=== PATIENT | female | born 1965 | race Caucasian/White ===

== ENCOUNTER 2022-10-23 11:19 | Outpatient (CLI) | payer OTHER, SELFPAY ==
[2022-10-23 17:07] LABS: Cholesterol* 176 mg/dL (90-199); HDL Cholesterol* 48 mg/dL (>=50); LDL Cholesterol Calculated 108 mg/dL (<100); Triglycerides* 99 mg/dL (40-149)
[2022-10-23 17:36] LABS: TSH With Reflex to FT4* 0.768 uIU/mL (0.270-4.200)
== END 2022-10-23 11:20 | disposition home or self-care (01) ==
PROVIDERS: PCP Family Medicine; Visit Provider Family Medicine
DX: E03.9 Hypothyroidism, unspecified (principal); E78.5 Hyperlipidemia, unspecified
CPT/HCPCS: 80061; 84443

== ENCOUNTER 2023-11-05 09:40 | Outpatient (CLI) | payer OTHER, SELFPAY | END 2023-11-05 09:41 | disposition home or self-care (01) | PROVIDERS: PCP Family Medicine; Visit Provider Family Medicine | DX: E78.2 Mixed hyperlipidemia (principal); E13.9 Other specified diabetes mellitus without complications; Z13.29 Encounter for screening for other suspected endocrine disorder | CPT/HCPCS: 80048; 80061; 84439 ==

== ENCOUNTER 2024-01-28 12:43 | Outpatient (CLI) | payer OTHER, SELFPAY ==
--- NOTE | 2024-01-28 13:00 | MM_ITS ---
Patient: PONCHO RESTREPO Facility:?[facility] Patient ID:?[id number] Site Patient ID:?[id number]. Site :?[id number] Study:?XRay-Breast Bilateral 3D W/CAD-01/28/2024 1:57:11 PM Ordering Physician:?Nishant Cole Final Report: BILATERAL SCREENING MAMMOGRAM WITH COMPUTER-AIDED DETECTION AND TOMOSYNTHESIS TECHNIQUE: CC and MLO views were obtained. These mammographic images have been obtained using full-field digital technique. These mammographic images were interpreted with the benefit of computer-aided detection. Breast Tomosynthesis was used in this interpretation. COMPARISON FILM: 09/07/21, 08/30/20, 07/05/19. FINDINGS: There are scattered areas of fibroglandular density. IMPRESSION: There is no radiographic evidence for malignancy. ASSESSMENT: BI-RADS Category 1: Negative RECOMMENDATION: Routine screening mammogram in 1 year. A lay language report of this examination will be provided to the patient. Brett Singh M.D. Diagnostic Radiologist [email or web address] DSM/sp R& Transcribed: 6:59 p.m. SP/Dictated by: Brett Singh MD @ 01/29/2024 12:34:00 PM Signed by:?Brett Singh MD @01/30/2024 11:26:41 AM (Electronic Signature)
== END 2024-01-28 12:44 | disposition home or self-care (01) ==
LOC: MAMMO 12:44
PROVIDERS: PCP Family Medicine; Visit Provider Family Medicine
DX: Z12.31 Encounter for screening mammogram for malignant neoplasm of breast (principal)
CPT/HCPCS: 77063; 77067

== ENCOUNTER 2024-12-24 08:20 | Outpatient (CLI) | payer OTHER, SELFPAY | END 2024-12-24 08:21 | disposition home or self-care (01) | LOC: NFLDREF 12-26 00:02 | PROVIDERS: PCP Family Medicine; Referring Provider Family Medicine; Visit Provider Family Medicine | DX: E78.2 Mixed hyperlipidemia (principal); E13.9 Other specified diabetes mellitus without complications; E03.9 Hypothyroidism, unspecified; Z79.84 Long term (current) use of oral hypoglycemic drugs; Z79.85 Long-term (current) use of injectable non-insulin antidiabetic drugs | CPT/HCPCS: 80048; 80061; 84443 ==

== ENCOUNTER 2024-12-29 11:05 | Outpatient (CLI) | payer OTHER, SELFPAY ==
[2024-12-31 22:38] LABS: HPV Source Cervix; HPV, High Risk by TMA Not Detected
== END 2024-12-29 11:06 | disposition home or self-care (01) ==
PROVIDERS: PCP Family Medicine; Visit Provider Family Medicine
DX: Z12.4 Encounter for screening for malignant neoplasm of cervix (principal)
CPT/HCPCS: 87624; 87625; 88141; 88142

== ENCOUNTER 2025-06-29 08:42 | Outpatient (CLI) | payer OTHER, SELFPAY | END 2025-06-29 08:43 | disposition home or self-care (01) | PROVIDERS: PCP Family Medicine; Visit Provider Family Medicine | DX: E03.9 Hypothyroidism, unspecified (principal); I10 Essential (primary) hypertension; E11.9 Type 2 diabetes mellitus without complications; E66.9 Obesity, unspecified; E55.9 Vitamin D deficiency, unspecified | CPT/HCPCS: 80048; 80061; 84439; 84443 ==

== ENCOUNTER 2025-08-03 09:51 | Outpatient (CLI) | payer OTHER, SELFPAY | END 2025-08-03 09:52 | disposition home or self-care (01) | LOC: NFLDREF 08-04 19:15 | PROVIDERS: PCP Family Medicine; Referring Provider Family Medicine; Visit Provider Family Medicine | DX: I10 Essential (primary) hypertension (principal); E03.9 Hypothyroidism, unspecified | CPT/HCPCS: 82565; 84439; 84443 ==